=== PATIENT | female | born 1975 | race African-American/Black ===

== ENCOUNTER 2020-04-14 08:51 | Emergency (ER) | payer MEDICAID ==
[~2020-04-14] VITALS: Ht 154.9 cm; Wt 73.4 kg
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
[2020-04-14] MEDS ORDERED: DIAZEPAM 5 MG TABLET ONE (09:19)
[2020-04-14] MEDS ORDERED: KETOROLAC 30 MG/1 ML ONE (09:19)
[2020-04-14] MEDS ORDERED: OXYcodone/APAP 5/325MG TABLET ONE (09:20)
--- NOTE | 2020-04-14 09:26 | NUR ---
Pt medicated for pain, now to Xray.
[2020-04-14] MEDS ORDERED: KETOROLAC 30 MG/1 ML IM ONE (09:30)
[2020-04-14] MEDS ORDERED: OXYcodone/APAP 5/325MG TABLET PO ONE (09:30)
[2020-04-14] MEDS ORDERED: DIAZEPAM 5 MG TABLET PO ONE (09:30)
--- NOTE | 2020-04-14 10:12 | NUR ---
Pt states pain improved
[2020-04-14 10:30] VITALS: BP 107/59
== END 2020-04-14 10:39 | disposition home or self-care (01) ==
LOC: ED 09:48
DX: S16.1XXA Strain of muscle, fascia and tendon at neck level, initial encounter (principal); X58.XXXA Exposure to other specified factors, initial encounter; Y93.89 Activity, other specified; Y92.89 Other specified places as the place of occurrence of the external cause; Y99.8 Other external cause status
CPT/HCPCS: 72050; 96372; 99283; J1885